=== PATIENT | female | born 1990 | race Hispanic/Latino ===

== ENCOUNTER 2017-09-15 02:56 | Emergency (ER) | payer OTHER ==
[2017-09-15 03:04] VITALS: RESP 18
--- NOTE | 2017-09-15 03:04 | ED PDOC ---
HPI: Psych/Substance Abuse Chief Complaint (Provider): etoh History Per: Patient Additional Complaint(s): 25-year-old female presents to emergency department via ambulance for acute alcohol intoxication. Patient arrives with abrasions to both knees. Patient is not answering questions appropriately upon arrival. <SarahAlexus - Last Filed: 09/15/17 05:44> <Artemio Flores A - Last Filed: 09/15/17 23:47> Time Seen by Provider: 09/15/17 03:03 Chief Complaint (Nursing): Alcohol Ingestion Past Medical History Reviewed: Historical Data, Nursing Documentation, Vital Signs Vital Signs: Last Vital Signs Temp 98.1 F 09/15/17 03:01 Pulse 106 H 09/15/17 03:01 Resp 18 09/15/17 03:01 BP 102/67 09/15/17 03:01 Pulse Ox 98 09/15/17 03:01 - Medical History PMH: No Chronic Diseases - Family History Family History: States: Unknown Family Hx <Alexus Smith - Last Filed: 09/15/17 05:44> Vital Signs: Last Vital Signs Temp 97.8 F 09/15/17 08:48 Pulse 81 09/15/17 08:48 Resp 18 09/15/17 08:48 BP 119/76 09/15/17 08:48 Pulse Ox 100 09/15/17 08:48 <Artemio Flores A - Last Filed: 09/15/17 23:47> - Allergies Allergies/Adverse Reactions: Allergies Allergy/AdvReac Type Severity Reaction Status Date / Time No Known Allergies Allergy Verified 09/15/17 03:03 Review of Systems ROS Statement: Except As Marked, All Systems Reviewed And Found Negative Musculoskeletal: Positive for: Other (abrasions to both knees) Psych: Positive for: Other (etoh) <Alexus Smith - Last Filed: 09/15/17 05:44> Physical Exam - Reviewed Nursing Documentation Reviewed: Yes Vital Signs Reviewed: Yes - Physical Exam Appears: Positive for: Well, Non-toxic, No Acute Distress Skin: Positive for: Normal Color. Negative for: Rash Eye Exam: Positive for: Normal appearance Cardiovascular/Chest: Positive for: Regular Rate, Rhythm Respiratory: Positive for: Normal Breath Sounds. Negative for: Wheezing, Respiratory Distress Extremity: Positive for: Other (Superficial abrasions to bilateral knees) Neurologic/Psych: Positive for: Other (Patient is asleep, arousable to painful stimuli, does not answer questions) <Alexus Smith - Last Filed: 09/15/17 05:44> - Laboratory Results Result Diagrams: 09/15/17 03:50 09/15/17 03:50 - ECG O2 Sat by Pulse Oximetry: 98 Pulse Ox Interpretation: Normal <Alexus Smith - Last Filed: 09/15/17 05:44> - Laboratory Results Result Diagrams: 09/15/17 03:50 09/15/17 03:50 <Artemio Flores - Last Filed: 09/15/17 23:47> Medical Decision Making Medical Decision Makin:30 am 25 y/o intoxicated female Plan: CBC CMP BAL IVF Serum beta 5:45 pm: Patient tried to get up out of stretcher to use the bathroom and has very unsteady gait. She was given bed cunningham. Patient is more alert at this time and states that she will try to contact a friend or family member to come pick her up. She will continue to be monitored. <Alexus Smith - Last Filed: 09/15/17 05:44> Disposition - Patient ED Disposition Is Patient to be Admitted: Transfer of Care - Disposition Disposition: Transfer of Care Disposition Time: 06:00 Patient Signed Over To: Artemio Flores Handoff Comments: Signed out pending sobriety and final disposition <Alexus Smith - Last Filed: 09/15/17 05:44> Counseled Patient/Family Regarding: Studies Performed, Diagnosis - Disposition Disposition Time: 07:00 Patient Signed Over To: Evie Hansen <Artemio Flores - Last Filed: 09/15/17 23:47> - Clinical Impression Clinical Impression: Alcohol intoxication - Disposition Condition: STABLE Instructions: Alcohol Use - When Is Drinking a Problem? Forms: [facility] (Danish) Results - Lab Results Lab Results: 09/15/17 09/15/17 09/15/17 03:50 03:50 03:50 WBC 6.8 RBC 4.26 Hgb 13.5 Hct 38.3 MCV 90.0 MCH 31.7 H MCHC 35.2 RDW 12.8 Plt Count 202 MPV 8.2 Neut % (Auto) 73.0 Lymph % (Auto) 22.2 [place] % (Auto) 3.8 Eos % (Auto) 0.5 Baso % (Auto) 0.5 Neut # (Auto) 5.0 Lymph # (Auto) 1.5 [place] # (Auto) 0.3 Eos # (Auto) 0.0 Baso # (Auto) 0.0 Sodium 143 Potassium 3.8 Chloride 105 Carbon Dioxide 23 Anion Gap 19 BUN 13 Creatinine 0.8 Est GFR ( Amer) > 60 Est GFR (Non-Af Amer) > 60 Random Glucose 111 H Calcium 8.9 Total Bilirubin 1.0 AST 20 ALT 16 Alkaline Phosphatase 39 Total Protein 7.5 Albumin 4.5 Globulin 3.0 Albumin/Globulin Ratio 1.5 Beta HCG, Quant < 2.39 Alcohol, Quantitative 256 H <Alexus Smith - Last Filed: 09/15/17 05:44> - Lab Results Lab Results: 09/15/17 09/15/17 09/15/17 03:50 03:50 03:50 WBC 6.8 RBC 4.26 Hgb 13.5 Hct 38.3 MCV 90.0 MCH 31.7 H MCHC 35.2 RDW 12.8 Plt Count 202 MPV 8.2 Neut % (Auto) 73.0 Lymph % (Auto) 22.2 [place] % (Auto) 3.8 Eos % (Auto) 0.5 Baso % (Auto) 0.5 Neut # (Auto) 5.0 Lymph # (Auto) 1.5 [place] # (Auto) 0.3 Eos # (Auto) 0.0 Baso # (Auto) 0.0 Sodium 143 Potassium 3.8 Chloride 105 Carbon Dioxide 23 Anion Gap 19 BUN 13 Creatinine 0.8 Est GFR ( Amer) > 60 Est GFR (Non-Af Amer) > 60 Random Glucose 111 H Calcium 8.9 Total Bilirubin 1.0 AST 20 ALT 16 Alkaline Phosphatase 39 Total Protein 7.5 Albumin 4.5 Globulin 3.0 Albumin/Globulin Ratio 1.5 Beta HCG, Quant < 2.39 Alcohol, Quantitative 256 H <Artemio Flores - Last Filed: 09/15/17 23:47>
[2017-09-15] MEDS ORDERED: Sodium Chloride 0.9% 1,000 ML IV STA (03:29)
[2017-09-15 03:54] LABS: BASO % 0.5 % (0.0-2.0); EOS % 0.5 % (0.0-4.0); HEMOGLOBIN 13.5 g/dL (12.0-16.0); LYMPH # 1.5 K/uL (1.0-4.3); LYMPH % 22.2 % (20.0-40.0); MEAN CORPUSCULAR HEMOGLOBIN 31.7 pg (27.0-31.0); MEAN CORPUSCULAR HGB CONC 35.2 g/dL (33.0-37.0); MEAN PLATELET VOLUME 8.2 fl (7.2-11.7); MONO # 0.3 K/uL (0.0-0.8); MONO % 3.8 % (0.0-10.0); NRBC % 0.2 % (0.0-0.0); RBC 4.26 Mil/uL (3.80-5.20); RED CELL DISTRIBUTION WIDTH 12.8 % (11.5-14.5); WHITE BLOOD COUNT 6.8 K/uL (4.8-10.8)
[2017-09-15 04:02] LABS: ALB/GLOB RATIO 1.5 (1.0-2.1); ALBUMIN 4.5 g/dL (3.5-5.0); ALT/SGPT 16 U/L (9-52); AST/SGOT 20 U/L (14-36); BLOOD UREA NITROGEN 13 mg/dl (7-17); CALCIUM 8.9 mg/dL (8.4-10.2); GFR AFRICAN-AMERICAN > 60; GFR NON-AFRICAN AMERICAN > 60
--- NOTE | 2017-09-15 07:11 | ED PDOC ---
- Laboratory Results Result Diagrams: 09/15/17 03:50 09/15/17 03:50 - ECG O2 Sat by Pulse Oximetry: 98 Medical Decision Making Medical Decision Makin:00 Patient endorsed to me by Dr. Flores pending clinical sobriety. Scribe Attestation: Documented by Wilmar Guardado, acting as a scribe for Evie Hansen MD. Provider Scribe Attestation: All medical record entries made by the Scribe were at my direction and personally dictated by me. I have reviewed the chart and agree that the record accurately reflects my personal performance of the history, physical exam, medical decision making, and the department course for this patient. I have also personally directed, reviewed, and agree with the discharge instructions and disposition. 8.00a - patient is awake and alert. no complaints. will discharge as planned. Disposition Doctor Will See Patient In The: Office Counseled Patient/Family Regarding: Diagnosis - Clinical Impression Clinical Impression: Alcohol intoxication - POA Present On Arrival: None - Disposition Disposition: Routine/Home Disposition Time: 08:00 Condition: IMPROVED Instructions: Alcohol Use - When Is Drinking a Problem? Forms: [facility] (Brazilian)
[2017-09-15 08:49] VITALS: BP 119/76; PULSE 81; TEMP 97.8; O2SAT 100
== END 2017-09-15 08:48 | disposition home or self-care (01) ==
LOC: EDBD 02:56 → H.ER 02:56
DX: F10.129 Alcohol abuse with intoxication, unspecified (principal)
CPT/HCPCS: 80053; 80320; 84702; 85025; 96360; 99283; J7030